=== PATIENT | female | born 1955 | race Caucasian/White ===

== ENCOUNTER → 2017-12-26 | Outpatient (CLI) | payer OTHER ==
--- NOTE | 2017-12-26 13:06 | VAS ---
History: Left leg edema Study: Left lower extremity venous Doppler Findings: Duplex sonography of the left lower extremity veins with augmentation, compression and colo r flow imaging was performed. No evidence of DVT is seen. No focal soft tissue swelling is evident. Impression: No evidence of DVT left lower extremity veins. Reported By:
== END ==
LOC: RAD 12:14
PROVIDERS: ATTEND Internal Medicine
DX: R60.0 Localized edema (principal); I73.9 Peripheral vascular disease, unspecified
CPT/HCPCS: 93971